=== PATIENT | female | born 1970 | race Caucasian/White ===

== ENCOUNTER 2019-06-15 01:20 | Day surgery (SDC) | payer OTHER, SELFPAY ==
[2019-06-09 15:58] VITALS: BMI 24.2
[2019-06-15 07:46] VITALS: BP 110/77; PULSE 58; RESP 16; TEMP 37.1; O2SAT 100
[2019-06-15] MEDS: LACTATED RINGERS 1,000 ML 150 ML IV CONT (07:57)
--- NOTE | 2019-06-15 08:16 | WPDANESEPPF ---
Anes - Initial Pre Proc Eval Procedure: Operation Date: 06/15/19 09:00 Proposed Procedures p Screening Colonoscopy - Gee Capps MD Date/Time: 06/15/19 08:16 Surgeon: Gee Capps MD Pre Op Diagnosis: Neoplasm Screening Patient Data Age: 49 Gender: F Height: 5 ft 2 in Weight: 62 kg Last Vital Signs Temp 37.1 C 06/15/19 07:46 Pulse 58 L 06/15/19 07:46 Resp 16 06/15/19 07:46 BP 110/77 06/15/19 07:46 Pulse Ox 100 06/15/19 07:46 Allergies Allergy/AdvReac Type Severity Reaction Status Date / Time No Known Allergies Allergy Unknown Verified 06/15/19 07:52 Home Medications Medication Instructions Recorded Confirmed Type multivitamin 1 tablet PO DAILY 05/03/19 06/15/19 History Patient hx anesthesia problems: none Family hx anesthesia problems: none PMFSH Past Medical History Medical History (Updated 05/03/19 @ 10:47 by Rodri Lopez) Cancer Diarrhea Gallbladder & bile duct stone, acute cholecystitis and obstruction Heart murmur High cholesterol Hypertension Surgical History Surgical History History of back surgery History of cholecystectomy Family History Family History Father Hypertension Grandparent Malignant neoplasm of prostate Social History Social History Smoking status: Never smoker Second hand tobacco smoke exposure: No Alcohol intake: current Substance use: never Substance use type: does not use Gender identity (if verbalized by the patient): Female Anes - Eval Final PreProcedure Day of Procedure 06/15/19 08:16 Patient weight: normal Heart: regular rate and rhythm Lungs: clear to auscultation Airway: Mallampati scale class II Neurological: alert and oriented Last oral intake: >/= 8 hours ASA classification: I Emergent: no Anesthetic plan: proceed Anesthesia type and monitoring: general GIVS and standard monitoring Informed Consent: The patient's anesthetic plan and its attendant risks and benefits were discussed with the patient/family/POA. Questions were solicited and answers provided to the satisfaction of the patient/family/POA.
--- NOTE | 2019-06-15 09:17 | PM.HPGS ---
History of Present Illness History of Present Illness Consent: Risks, benefits, and alternatives have been discussed and questions answered. Patient agrees to proceed with procedure. Chief complaint: Neoplasm Screening Narrative: Omayra Serna is a 49 year old female here for screening colonoscopy Review of Systems Constitutional: Constitutional: Denies headache(s) and Denies weakness Eyes: Eyes: Denies blurry vision ENT: Reports Normal hearing present, Denies headache(s) and Denies neck pain Cardiovascular: Cardiovascular: Denies chest pain and Denies dyspnea Respiratory: Respiratory: Denies dyspnea Gastrointestinal: Gastrointestinal: Reports no additional gastrointestinal complaints Genitourinary: Genitourinary: Denies dysuria Musculoskeletal: Musculoskeletal: Denies neck pain Integumentary/Breasts: Skin/Breast: Denies dry skin Neurologic: Reports Normal hearing present, Denies headache(s) and Denies weakness Psychiatric: Psychiatric: Denies anxiety Endocrine: Endocrine: Denies change in body appearance Hematologic/Lymphatic: Hematologic/Lymphatic: Denies easy bleeding Allergic/Immunologic: Allergic/Immunologic: Denies urticaria PMF Past Medical History Medical History (Updated 06/15/19 @ 09:17 by Gee Capps MD) Cancer Colon cancer screening Diarrhea Gallbladder & bile duct stone, acute cholecystitis and obstruction Heart murmur High cholesterol Hypertension Surgical History Surgical History History of back surgery History of cholecystectomy Family History Family History Father Hypertension Grandparent Malignant neoplasm of prostate Social History Social History Smoking status: Never smoker Second hand tobacco smoke exposure: No Alcohol intake: current Substance use: never Substance use type: does not use Gender identity (if verbalized by the patient): Female Meds Home Medications and Allergies Home Medications Medication Instructions Recorded Confirmed Type multivitamin 1 tablet PO DAILY 05/03/19 06/15/19 History Allergies Allergy/AdvReac Type Severity Reaction Status Date / Time No Known Allergies Allergy Unknown Verified 06/15/19 07:52 Vital Signs Vital Signs - 24 hr 06/15/19 07:46 Temperature 98.7 F Pulse Rate 58 L Respiratory Rate 16 Blood Pressure 110/77 Pulse Oximetry 100 Exam Const: General: comfortable and no acute distress HENMT: General nose exam: Normal nares present Eyes: General: appearance normal, both eyes and all related structures Neck: Neck: no JVD Resp: Auscultation: clear to auscultation bilaterally Cardio: Rate: regular rate Rhythm: regular rhythm GI: Inspection: non-distended GI Palp: Yes Soft to palpation Skin: General skin exam: normal color Neuro: General: gait normal Speech: normal speech Extrem: General: normal to inspection Psych: Mental Status: mental status grossly normal Assessment and Plan Assessment and plan (1) Colon cancer screening: Code(s): Z12.11 - Encounter for screening for malignant neoplasm of colon Status: Acute Assessment and Plan: will proceed with colonoscopy
--- NOTE | 2019-06-15 09:35 | PM.HPGS ---
History of Present Illness History of Present Illness Consent: Risks, benefits, and alternatives have been discussed and questions answered. Patient agrees to proceed with procedure. Chief complaint: Neoplasm Screening Narrative: Omayra Serna is a 49 year old female here for screening colonoscopy, never had one Review of Systems Constitutional: Constitutional: Denies headache(s) and Denies weakness Eyes: Eyes: Denies blurry vision ENT: Reports Normal hearing present, Denies headache(s) and Denies neck pain Cardiovascular: Cardiovascular: Denies chest pain and Denies dyspnea Respiratory: Respiratory: Denies dyspnea Gastrointestinal: Gastrointestinal: Reports no additional gastrointestinal complaints Genitourinary: Genitourinary: Denies dysuria Musculoskeletal: Musculoskeletal: Denies neck pain Integumentary/Breasts: Skin/Breast: Denies dry skin Neurologic: Reports Normal hearing present, Denies headache(s) and Denies weakness Psychiatric: Psychiatric: Denies anxiety Endocrine: Endocrine: Denies change in body appearance Hematologic/Lymphatic: Hematologic/Lymphatic: Denies easy bleeding Allergic/Immunologic: Allergic/Immunologic: Denies urticaria PMFSH Past Medical History Medical History (Updated 06/15/19 @ 09:17 by Gee Capps MD) Cancer Colon cancer screening Diarrhea Gallbladder & bile duct stone, acute cholecystitis and obstruction Heart murmur High cholesterol Hypertension Surgical History Surgical History History of back surgery History of cholecystectomy Family History Family History Father Hypertension Grandparent Malignant neoplasm of prostate Social History Social History Smoking status: Never smoker Second hand tobacco smoke exposure: No Alcohol intake: current Substance use: never Substance use type: does not use Gender identity (if verbalized by the patient): Female Meds Home Medications and Allergies Home Medications Medication Instructions Recorded Confirmed Type multivitamin 1 tablet PO DAILY 05/03/19 06/15/19 History Allergies Allergy/AdvReac Type Severity Reaction Status Date / Time No Known Allergies Allergy Unknown Verified 06/15/19 07:52 Vital Signs Vital Signs - 24 hr 06/15/19 07:46 Temperature 98.7 F Pulse Rate 58 L Respiratory Rate 16 Blood Pressure 110/77 Pulse Oximetry 100 Exam Const: General: comfortable and no acute distress HENMT: General nose exam: Normal nares present Eyes: General: appearance normal, both eyes and all related structures Neck: Neck: no JVD Resp: Auscultation: clear to auscultation bilaterally Cardio: Rate: regular rate Rhythm: regular rhythm GI: Inspection: non-distended GI Palp: Yes Soft to palpation Skin: General skin exam: normal color Neuro: General: gait normal Speech: normal speech Extrem: General: normal to inspection Psych: Mental Status: mental status grossly normal Assessment and Plan Assessment and plan (1) Colon cancer screening: Code(s): Z12.11 - Encounter for screening for malignant neoplasm of colon Status: Acute Assessment and Plan: will proceed with colonoscopy
[2019-06-15 09:38] VITALS: BP 99/60; PULSE 52; RESP 20; O2SAT 100
[2019-06-15 09:48] VITALS: BP 108/63; PULSE 56; RESP 18; O2SAT 100
[2019-06-15 09:58] VITALS: BP 106/68; PULSE 52; RESP 19; O2SAT 100
== END 2019-06-15 10:10 | disposition home or self-care (01) ==
PROVIDERS: PCP Family Medicine; Visit Provider Internal Medicine Gastroenterology
PROC: 0DJD8ZZ Inspection of Lower Intestinal Tract, Via Natural or Artificial Opening Endoscopic (ICD-10-PCS; CPT 45378; principal; 2019-06-15 09:00)
DX: Z12.11 Encounter for screening for malignant neoplasm of colon (principal); I10 Essential (primary) hypertension; E78.00 Pure hypercholesterolemia, unspecified
CPT/HCPCS: 45378; J2704; J7120

== ENCOUNTER → 2019-12-17 13:23 | Outpatient (CLI) | payer OTHER, SELFPAY ==
--- NOTE | ~2019-12-17 | MM_ITS ---
EXAMINATION: MM screening [facility] BI w jace HISTORY: Screening TECHNIQUE: Craniocaudal and mediolateral oblique 3-D tomosynthesis images were obtained and synthetic 2-D images were generated. CAD analysis was submitted and interpreted. COMPARISON: Comparison to multiple prior studies sequentially, with oldest reviewed study dated 09/22. BREAST PARENCHYMAL COMPOSITION: There are scattered areas of fibroglandular density. FINDINGS: There is no evidence of suspicious mass, calcification, or architectural distortion to sugg est malignancy in either breast. There has been no suspicious interval change. IMPRESSION: 1. No mammographic evidence of malignancy. 2. Recommend routine screening mammography in one year. BI-RADS Category 1: Negative Reviewed, dictated and finalized at location A.
== END ==
PROVIDERS: Visit Provider Nurse Practitioner
DX: Z12.31 Encounter for screening mammogram for malignant neoplasm of breast (principal)
CPT/HCPCS: 77063; 77067

== ENCOUNTER → 2020-12-18 12:51 | Outpatient (CLI) | payer OTHER, SELFPAY ==
--- NOTE | ~2020-12-18 | MM_ITS ---
EXAMINATION: MM screening [facility] BI w jace HISTORY: Screening TECHNIQUE: Craniocaudal and mediolateral oblique 3-D tomosynthesis images were obtained and synthetic 2-D images were generated. CAD analysis was submitted and interpreted. COMPARISON: Comparison to multiple prior studies sequentially, with oldest reviewed study dated 09/27. BREAST PARENCHYMAL COMPOSITION: There are scattered areas of fibroglandular density. FINDINGS: There is no evidence of suspicious mass, calcification, or architectural distortion to sugg est malignancy in either breast. There has been no suspicious interval change. IMPRESSION: 1. No mammographic evidence of malignancy. 2. Recommend routine screening mammography in one year. BI-RADS Category 1: Negative Reviewed, dictated and finalized at location A.
== END ==
PROVIDERS: Visit Provider Nurse Practitioner
DX: Z12.31 Encounter for screening mammogram for malignant neoplasm of breast (principal)
CPT/HCPCS: 77063; 77067

== ENCOUNTER → 2022-01-30 12:45 | Outpatient (CLI) | payer OTHER, SELFPAY ==
--- NOTE | ~2022-01-30 | MM_ITS ---
EXAMINATION: MM screening [facility] BI w jace HISTORY: Screening mammogram TECHNIQUE: Craniocaudal and mediolateral oblique 3-D tomosynthesis images were obtained and synthetic 2-D images were generated. CAD analysis was submitted and interpreted. COMPARISON: 12/18/2020, 12/17/2019, 11/25/2018 BREAST PARENCHYMAL COMPOSITION: There are scattered areas of fibroglandular density. FINDINGS: No suspicious mass, calcification, or architectural distortion are identified in either ada ast to suggest malignancy. There has been no suspicious interval change. IMPRESSION: 1. No mammographic evidence of malignancy. 2. Recommend routine screening mammography in one year. BI-RADS Category 1: Negative Reviewed, dictated and finalized at location A.
== END ==
PROVIDERS: PCP Family Medicine; Visit Provider Nurse Practitioner
DX: Z12.31 Encounter for screening mammogram for malignant neoplasm of breast (principal)
CPT/HCPCS: 77063; 77067

== ENCOUNTER 2024-05-06 11:25 | Outpatient (CLI) | payer OTHER, SELFPAY ==
--- NOTE | ~2024-05-06 | MM_ITS ---
EXAMINATION: MM screening [facility] BI w jace HISTORY: Screening TECHNIQUE: Craniocaudal and mediolateral oblique 3-D tomosynthesis images were obtained and synthetic 2-D images were generated. CAD analysis was submitted and interpreted. COMPARISON: Comparison to multiple prior studies sequentially, with oldest reviewed study dated 11/25. BREAST PARENCHYMAL COMPOSITION: Not dense: There are scattered areas of fibroglandular density. FINDINGS: There is a developing focal asymmetry in the upper outer quadrant of the right breast, midd le third. The left breast is stable without evidence for malignancy. IMPRESSION: 1. Developing right breast asymmetry. 2. Additional mammographic views and possible breast ultrasound are recommended. BI-RADS Category 0: Incomplete: Needs additional imaging evaluation. Reviewed, dictated and finalized at location A. EZER OPERATOR IMPRESSION: 1. Developing right breast asymmetry. 2. Additional mammographic views and possible breast ultrasound are recommended . BI-RADS Category 0: Incomplete: Needs additional imaging evaluation.
== END 2024-05-06 11:26 | disposition home or self-care (01) ==
PROVIDERS: PCP Nurse Practitioner; Visit Provider Nurse Practitioner
DX: Z12.31 Encounter for screening mammogram for malignant neoplasm of breast (principal); R92.8 Other abnormal and inconclusive findings on diagnostic imaging of breast
CPT/HCPCS: 77063; 77067

== ENCOUNTER 2024-05-27 08:15 | Outpatient (CLI) | payer OTHER, SELFPAY ==
--- NOTE | ~2024-05-27 | MMUS_ITS ---
EXAMINATION: MM diagnostic jeron[facility] RT w jace, US breast RT limited HISTORY: Follow-up right breast asymmetries. TECHNIQUE: Additional 3-D tomosynthesis images of the right breast were performed and synthetic 2-D i mages were generated. CAD analysis was submitted and interpreted. High resolution Limited right breas t ultrasound was performed. COMPARISON: Comparison to multiple prior studies sequentially, with oldest reviewed study dated 11/25. BREAST PARENCHYMAL COMPOSITION: Dense: The breasts are heterogeneously dense, which may obscure small masses FINDINGS: MAMMOGRAPHIC FINDINGS: Right breast asymmetries compress with spot views. There are no suspicious masses, calcifications or architectural distortion to suggest malignancy. ULTRASOUND: Limited right breast ultrasound: Normal heterogeneous echotexture without focal solid or cystic mass. IMPRESSION: 1. No evidence for malignancy in the right breast. 2. Routine yearly screening mammogram and regular clinical breast examination are recommended. BI-RADS Category 1: Negative Reviewed, dictated and finalized at location B. SQUEAK CHALKER IMPRESSION: 1. No evidence for malignancy in the right breast. 2. Routine yearly screening mammogram and regular clinical breast examination a re recommended. BI-RADS Category 1: Negative
== END 2024-05-27 08:16 | disposition home or self-care (01) ==
LOC: MICIMG 08:15
PROVIDERS: PCP Nurse Practitioner Women's Health; Visit Provider Nurse Practitioner Women's Health
DX: R92.8 Other abnormal and inconclusive findings on diagnostic imaging of breast (principal)
CPT/HCPCS: 76642; 77061; 77065; G0279

== ENCOUNTER 2025-02-21 14:19 | Outpatient (CLI) | payer OTHER, SELFPAY ==
--- NOTE | ~2025-02-21 | DEXA_ITS ---
Bone Density Report Name: TAY MONTESINOS Age: 55 Sex: Female Ethnicity: White Date of : 1970 Indication: postmenopausal; screening for osteoporosis; Referring Provider: UMESH, BRIANA Study: Bone densitometry was performed. Exam Date: February 21, 2025 Accession number: [id number] Bone Density: Region BMD T-score Z-score Classification AP Spine(L1-L4) 1.031 -0.1 0.9 Normal Femoral Neck (Left) 0.827 -0.2 0.9 Normal Total Hip (Left) 1.004 0.5 1.2 Normal Femoral Neck (Right) 0.869 0.2 1.2 Normal Total Hip (Right) 1.013 0.6 1.3 Normal Total Hip Mean 1.009 0.6 1.3 Normal World Health Organization criteria for BMD impression classify patients as: Normal (T-score at or above -1.0), Osteopenia (T-score between -1.0 and -2.5), or Osteoporosis (T-score at or below -2.5). 10-year Fracture Risk: FRAX not reported because: All T-scores for Spine Total, Hip Total, Femoral Neck at or above -1.0 Clinical Information Provided by Patient: Has used the following medications: HRT (i.e. estrogen/hormone therapy), Calcium Patient maximum height was 63 Menopause Age: 54 Drinks caffeinated beverages Onset of menses at age 12 Number of children 2 Missed period for more than 6 months in a row Impression: The patient has normal bone mass. Discussion: BONE DENSITY IS ABOVE THE MINIMUM DESIRABLE LEVEL AT ALL SKELETAL SITES TESTED. This patient?s bone mineral density is above the minimum desirable level (T-score -1.0 or better) at all sites measured. The patient should follow a healthful lifestyle (good nutrition with adequate calcium and vitamin D, and appropriate weight-bearing exercise). Follow-Up: Consider repeating this study in 5 years or sooner if there is some new clinical indication. Reported by: OBDULIO on 02/21/2025 3:01:00 PM. Reviewed, dictated and finalized at location A.
== END 2025-02-21 14:20 | disposition home or self-care (01) ==
LOC: MICIMG 14:21
DX: Z78.0 Asymptomatic menopausal state (principal); Z13.820 Encounter for screening for osteoporosis
CPT/HCPCS: 77080